=== PATIENT | female | born 1995 | race Caucasian/White ===

== ENCOUNTER 2020-02-07 21:01 | Emergency (ER) | payer OTHER ==
[~2020-02-07] VITALS: Ht 154.9 cm; Wt 49.9 kg
[2020-02-07 21:01] VITALS: BP 111/66
== END 2020-02-07 22:35 | disposition home or self-care (01) ==
LOC: ER 21:05
DX: T14.90XA Injury, unspecified, initial encounter (principal); R53.83 Other fatigue; Y08.89XA Assault by other specified means, initial encounter; Y93.89 Activity, other specified; Y92.89 Other specified places as the place of occurrence of the external cause; Y99.8 Other external cause status

== ENCOUNTER 2020-02-09 19:04 | Emergency (ER) | payer OTHER ==
[~2020-02-09] VITALS: Ht 157.5 cm; Wt 54.4 kg
[2020-02-09 19:14] VITALS: BP 94/59
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
--- NOTE | 2020-02-09 19:26 | NUR ---
SEEN AND EXAMINED BY CIRO MORTENSEN
--- NOTE | 2020-02-09 19:39 | NUR ---
PATIENT IS DISCHARGED, AMBULATORY WITH A STEADY GAIT.
--- NOTE | 2020-02-09 19:39 | NUR ---
Patient discharged to home in stable condition. Written and verbal after care instructions given. Patient verbalizes understanding of instruction.
== END 2020-02-09 19:41 | disposition home or self-care (01) ==
LOC: ER 19:07
DX: Z00.8 Encounter for other general examination (principal); F15.10 Other stimulant abuse, uncomplicated; F17.200 Nicotine dependence, unspecified, uncomplicated; Z59.0 Homelessness

== ENCOUNTER 2020-12-31 11:06 | Emergency (ER) | payer OTHER ==
[~2020-12-31] VITALS: Ht 165.1 cm; Wt 66.2 kg
--- NOTE | 2020-12-31 11:20 | NUR ---
BIB PD FOR MEDICAL CLEARANCE. PER PD WAS ACTING FINE BUT REFUSING TO ANSWER WHILE BEING TRIAGE. STABLE VITALS MOLECULAR TECHNOLOGIST. ASKING FOR WATER. THE PATIENT IS IN NO APPARENT DISTRESS. RESPIRATION REGULAR AND UNLABORED. ATTACHED TO THE MONITOR. WARM BLANKET PROVIDED FOR COMFORT. WILL CONTINUE TO MONITOR THE PATIENT. [employer] OFFICERS AT THE BEDSIDE.
[2020-12-31] MEDS ORDERED: NALOXONE HCL 0.4 MG/ML AMPUL IV ONE (11:30)
--- NOTE | 2020-12-31 11:42 | NUR ---
THE PATIENT IS ALERT AND ORIENTED X3. DENIES PAIN. IN ROOM AIR AND DENIES SOB. RESPIRATION REGULAR AND UNLABORED.
--- NOTE | 2020-12-31 11:42 | NUR ---
PHLEBATOMIST AT THE BEDSIDE
--- NOTE | 2020-12-31 12:07 | NUR ---
PATIENT PROVIDED WITH WATER AND FOOD.
--- NOTE | 2020-12-31 12:22 | NUR ---
[facility] SENT TO LAB.
[2020-12-31 12:28] LABS: BASOPHILS # (AUTO) 0.1 K/uL (0.0-0.2); EOSINOPHILS % (AUTO) 1.9 % (0.0-6.0); HEMATOCRIT 37 % (33-45); HEMOGLOBIN 12.5 g/dL (11.5-14.8); LYMPHOCYTES # (AUTO) 1.6 K/uL (0.8-4.8); LYMPHOCYTES % (AUTO) 20.7 % (20.0-44.0); MEAN CORPUSCULAR HGB CONC 34 g/dl (31.0-36.0); MEAN CORPUSCULAR VOLUME 82 fL (82-100); MONOCYTES # (AUTO) 0.5 K/uL (0.1-1.30); NEUTROPHILS # (AUTO) 5.4 K/uL (1.8-8.9); NEUTROPHILS % (AUTO) 69.4 % (43.0-81.0); PLATELET COUNT (AUTO) 443 K/uL (150-450); RED BLOOD CELL COUNT(AUTO) 4.51 MIL/uL (4.0-5.2); WHITE BLOOD COUNT (AUTO) 7.7 K/uL (4.3-11.0)
[2020-12-31 12:31] LABS: CALCIUM, SERUM 8.7 mg/dL (8.5-10.1); CARBON DIOXIDE 27 mmol/L (21-32); CHLORIDE 102 mmol/L (98-107); CREATININE 0.6 mg/dL (0.6-1.3); GLUCOSE 95 mg/dL (74-106); POTASSIUM 3.1 mmol/L (3.5-5.1); SODIUM SERUM 139 mmol/L (136-145); UREA NITROGEN, BLOOD 7 mg/dL (7-18)
[2020-12-31 12:39] LABS: ALANINE AMINOTRANSFERASE 14 U/L (12-78); ALKALINE PHOSPHATASE 75 U/L (46-116); ASPARTATE AMINOTRANSFERASE 11 U/L (15-37); BILIRUBIN,DIRECT 0.2 mg/dL (0.0-0.2); BILIRUBIN,TOTAL 0.6 mg/dL (0.2-1.0); TOTAL PROTEIN, SERUM 7.8 g/dL (6.4-8.2)
[2020-12-31 12:43] LABS: ACETAMINOPHEN < 10 ug/ml (10-30)
[2020-12-31 12:44] LABS: ALCOHOL, BLOOD < 3 mg/dL (0-0)
[2020-12-31 12:52] LABS: BILIRUBIN,URINE SMALL (NEGATIVE); COLOR,URINE YELLOW (YELLOW); LEUKOCYTE ESTERASE ,URINE TRACE (NEGATIVE); NITRITE, URINE POSITIVE (NEGATIVE); PROTEIN,URINE TRACE mg/dl (NEGATIVE); UGLUCOSE NEGATIVE (NEGATIVE)
[2020-12-31] MEDS ORDERED: POTASSIUM CHLORIDE 20 MEQ TAB.PRT.SR PO ONE ×2 (13:00→13:03)
[2020-12-31 13:08] LABS: BACTERIA,URINE Many /HPF (None Seen); RBC,URINE 0-2 /HPF (0-2); SQUAMOUS EPITHELIAL CELL,UR Many /HPF (None Seen)
[2020-12-31] MEDS ORDERED: CEPHALEXIN MONOHYDRATE 500 MG CAPSULE PO ONE ×2 (13:30→13:47)
[2020-12-31] MEDS ORDERED: CEPH500C2 PO (13:36)
--- NOTE | 2020-12-31 13:54 | NUR ---
The patient is alert and oriented x4. Denies pain. In room air and denies SOB. Respiration regular and unlabored. Patient discharged to home in stable condition with [employer] officers. Written and verbal after care instructions given. The patient and the officers verbalize understanding of instruction.
[2020-12-31 13:56] VITALS: BP 116/63
[2020-12-31] MEDS ORDERED: NALO4SPR NS (16:20)
== END 2020-12-31 13:56 ==
LOC: ER 11:10
DX: R41.82 Altered mental status, unspecified (principal); F19.10 Other psychoactive substance abuse, uncomplicated; E87.6 Hypokalemia; N39.0 Urinary tract infection, site not specified; Z59.0 Homelessness
CPT/HCPCS: 36415; 80048-TC; 80076-TC; 81001; 84484-TC; 84703-TC; 85025-TC; 87086-TC; 87186-TC; G0480

== ENCOUNTER 2020-12-31 16:04 | Emergency (ER) | payer OTHER ==
[~2020-12-31] VITALS: Ht 165.1 cm; Wt 66.2 kg
[~2020-12-31 16:04] MED LIST: CEPH500C2 PO
[2020-12-31] MEDS ORDERED: NALO4SPR NS (16:20)
--- NOTE | 2020-12-31 16:20 | NUR ---
[facility] OFFICERS FOR MEDICAL CLEARANCE,SEEN HERE EARLIER BUT HEAD WAS NOT ADDRESSED,HIT HER HEAD AGAINST THE WALL PER OFFICERS. THE PATIENT IS ALERT AND ORIENTED X3. DENIES PAIN. RESPIRATION REGULAR AND UNLABORED. WILL CONTINUE TO MONITOR THE PATIENT.
--- NOTE | 2020-12-31 16:34 | NUR ---
Patient discharged to home in stable condition. Written and verbal after care instructions given. Patient verbalizes understanding of instruction.
[2020-12-31 16:35] VITALS: BP 121/67
== END 2020-12-31 16:35 ==
LOC: ER 16:08
DX: S09.8XXA Other specified injuries of head, initial encounter (principal); N39.0 Urinary tract infection, site not specified; E87.6 Hypokalemia; F19.10 Other psychoactive substance abuse, uncomplicated; F17.200 Nicotine dependence, unspecified, uncomplicated; Z59.0 Homelessness; Z79.899 Other long term (current) drug therapy; W22.01XA Walked into wall, initial encounter; Y93.89 Activity, other specified; Y92.89 Other specified places as the place of occurrence of the external cause; Y99.8 Other external cause status